=== PATIENT | male | born 1955 | race Caucasian/White ===

== ENCOUNTER 2019-12-07 10:18 | Outpatient (CLI) | payer MEDICARE, SELFPAY ==
--- NOTE | ~2019-12-07 | MR_ITS ---
EXAMINATION: MR lumbar spine wo con DATE: 12/07/2019 12:14 INDICATION: Low back pain. Other intervertebral disc degeneration, lumbar region. TECHNIQUE: Magnetic resonance imaging (MRI) of the lumbar spine was performed without intravenous con trast. Sequences included sagittal T2-weighted FSE, sagittal T2-weighted FS FSE, sagittal T1-weighted FSE, and axial T2-weighted FSE. COMPARISON: Lumbar spine radiographs 12/03/2007 FINDINGS: There is 5 degrees levocurvature of lumbar spine. There is 3 mm anterolisthesis of L3 on L4 . L5 is a transitional segment. Intervertebral disc heights are normal. There is mildly decreased dis c height at L1-L2 and L3-L4. There is severely decreased disc height at L4-L5 with disc calcification s. The distal spinal cord signal intensity is normal. The conus medullaris is at T12. The following d isc levels are specifically discussed: L1-L2: The disc is bulging. There is mild bilateral facet joint osteoarthritis. There is mild bilater al neural foraminal stenosis. There is mild central canal stenosis. L2-L3: The disc is bulging and has an annular fissure. There is mild bilateral facet joint osteoarthr itis. There is mild bilateral neural foraminal stenosis. There is mild central canal stenosis. L3-L4: The disc is bulging. There is severe bilateral facet joint osteoarthritis. There is moderate b ilateral neural foraminal stenosis. There is moderate central canal stenosis. L4-L5: The disc is bulging. There is mild bilateral facet joint osteoarthritis. There is mild right a nd moderate left neural foraminal stenosis. There is no central canal stenosis. L5-S1: The disc does not extend beyond the endplate margin. There is mild bilateral facet joint hyper trophy. There is no neural foraminal stenosis. There is no central canal stenosis. IMPRESSION: 1. Moderate lumbar spondylosis. Reviewed, dictated and finalized at location A.
[2019-12-07 13:28] LABS: Basophils Percent Auto 0.5 % (0.2-1.2); Eosinophils Absolute Auto 0.2 K/mm3 (0-0.3); Hematocrit 48.4 % (42.0-52.0); Hemoglobin 15.7 g/dL (14.0-18.0); Immature Granulocyte Absolute 0.03 K/mm3 (0.00-0.031); Immature Granulocyte Percent A 0.4 % (0-0.5); Lymphocytes Absolute Auto 1.96 K/mm3 (0.9-3.2); Lymphocytes Percent Auto 23.2 % (18.3-44.2); Mean Corpuscular HGB Conc 32.4 g/dl (32-36); Mean Corpuscular Hemoglobin 30.4 pg (26-34); Mean Corpuscular Volume 93.8 fl (80-100); Mean Platelet Volume 9.6 fl (7.4-10.4); Monocytes Absolute Auto 0.6 K/mm3 (0.1-0.6); Monocytes Percent Auto 6.7 % (2.6-8.5); Neutrophils Absolute Auto 5.7 K/mm3 (1.3-6.7); Neutrophils Percent Auto 67.2 % (45.5-73.1); Platelet Count Result 230 k/mm3 (150-375); Red Blood Count 5.16 M/mm3 (4.6-6.20); Red Cell Distribution Width 14.6 % (11.5-14.5); White Blood Count 8.5 K/mm3 (4.5-10.0)
[2019-12-07 13:37] LABS: Alanine Aminotransferase 17 U/L (4-50); Albumin Level 4.2 g/dL (3.5-5.1); Alkaline Phosphatase 110 U/L (38-126); Aspartate Amino Transferase 25 U/L (17-59); Bilirubin,Total 0.6 mg/dL (0.2-1.3); Blood Urea Nitrogen 9 mg/dL (9-20); Calcium 8.8 mg/dL (8.4-10.2); Carbon Dioxide 28 mmol/L (22-30); Chloride 102 mmol/L (98-107); Cholesterol 177 mg/dL (0-200); Estimated Glomerular Filt Rate > 60; Glucose 91 mg/dL (75-110); HDL Direct 64 mg/dL; Hemoglobin A1C 5.2 % (<5.7); Potassium 4.4 mmol/L (3.4-5.0); Sodium 138 mmol/L (137-145); Triglycerides 110 mg/dL (<150)
[2019-12-07 13:50] LABS: LDL Cholesterol Direct 99 mg/dL
[2019-12-07 14:03] LABS: Free T4 Free Thyroxine 0.85 ng/mL (0.78-2.19)
[2019-12-07 14:10] LABS: Prostate Specific Antigen 1.1 ng/mL (< OR = 4.0)
[2019-12-07 14:19] LABS: Creatinine Urine 25.9 mg/dL
[2019-12-07 14:22] LABS: MALB Creatinine Ratio < 23.2 mg/g (0-30); Microalbumin Urine Random < 6.0 mg/L (0-16.7)
== END 2019-12-07 10:19 | disposition home or self-care (01) ==
PROVIDERS: PCP Family Medicine; Visit Provider Family Medicine
DX: E78.2 Mixed hyperlipidemia (principal); E11.9 Type 2 diabetes mellitus without complications; Z12.5 Encounter for screening for malignant neoplasm of prostate; E03.9 Hypothyroidism, unspecified; D51.9 Vitamin B12 deficiency anemia, unspecified; M51.36 Other intervertebral disc degeneration, lumbar region
CPT/HCPCS: 36415; 72148; 80048; 80061; 80076; 82043; 82607; 83036; 84153; 84439; 84443; 85025; G0103

== ENCOUNTER 2020-06-27 10:24 | Outpatient (CLI) | payer MEDICARE, SELFPAY ==
--- NOTE | ~2020-06-27 | XR_ITS ---
XR lumbar spine 2-3V DATE: 06/27/2020 10:51 INDICATION: Low back pain after slipping. Pain radiates down right leg. TECHNIQUE: AP, lateral, coned lateral lumbosacral views COMPARISON: 12/03/2007 lumbar spine FINDINGS: There are prominent bridging osteophytes at on the left in the thoracolumbar area. There is mild to moderate degenerative spurring of the lumbar spine. Minimal levoscoliosis of the lumbar spine. There is a transitional lumbosacral vertebra, previously denoted as L5. Moderately severe degenerative disc disease at L4-5. Grade 1 anterolisthesis at L3-4 due to degenerative change at the apophyseal joints. IMPRESSION: Transitional fifth lumbar segment Degenerative changes, most pronounced at L4-5 Grade 1 anterolisthesis at L3-4 Reviewed, dictated and finalized at location B.
== END 2020-06-27 10:25 | disposition home or self-care (01) ==
LOC: ANHIMG 10:28
PROVIDERS: PCP Family Medicine; Visit Provider Nurse Practitioner Family
DX: M51.36 Other intervertebral disc degeneration, lumbar region (principal)
CPT/HCPCS: 72100

== ENCOUNTER 2024-03-08 13:37 | Outpatient (CLI) | payer MEDICARE, SELFPAY | END 2024-03-08 13:38 | disposition home or self-care (01) | LOC: ANHAUDASC 13:37 | PROVIDERS: PCP Family Medicine; Visit Provider Otolaryngology | DX: H90.6 Mixed conductive and sensorineural hearing loss, bilateral (principal); H65.492 Other chronic nonsuppurative otitis media, left ear; H69.92 Unspecified Eustachian tube disorder, left ear; H90.3 Sensorineural hearing loss, bilateral | CPT/HCPCS: 92557; 92567 ==

== ENCOUNTER 2025-03-21 09:53 | Outpatient (CLI) | payer MEDICARE, SELFPAY ==
--- NOTE | ~2025-03-21 | CT_ITS ---
CT Scan of the Chest without Contrast: Clinical Indication: Lung cancer screening, nicotine dependence Technique: Contiguous sections were acquired throughout the chest without intravenous contrast. Dose reduction technique was used on this scan by utilizing automated exposure control and iterative recon struction technique. The dose-length product (DLP) was 470.93 mGy-cm. Findings: There is no evidence of any significant mediastinal, hilar or axillary lymphadenopathy. The mediastin al soft tissues appear normal. There is no evidence of pleural or pericardial effusion. There is mild to moderate emphysema in the upper lobes. No discrete pulmonary nodule evident. Images through the upper abdomen reveal partially imaged ventral hernia containing portion of the tra nsverse colon. Impression: Lung RADS 1-S: Negative. 12 month follow-up screening CT advised. Moderate emphysema. Partially imaged ventral hernia containing a portion of the transverse colon. Reviewed, dictated and finalized at [facility]. Impression: Lung RADS 1-S: Negative. 12 month follow-up screening CT advised. Moderate emphysema. Partially imaged ventral hernia containing a portion of the transverse colon.
== END 2025-03-21 09:54 | disposition home or self-care (01) ==
PROVIDERS: PCP Family Medicine; Visit Provider Family Medicine
DX: Z12.2 Encounter for screening for malignant neoplasm of respiratory organs (principal); Z87.891 Personal history of nicotine dependence; R09.89 Other specified symptoms and signs involving the circulatory and respiratory systems; J43.9 Emphysema, unspecified; K43.9 Ventral hernia without obstruction or gangrene
CPT/HCPCS: 71271